=== PATIENT | male | born 1970 | race Caucasian/White ===

== ENCOUNTER 2016-09-05 09:25 | Emergency (ER) | payer OTHER ==
[~2016-09-05] VITALS: Ht 170.2 cm; Wt 90.0 kg
[~2016-09-05 09:25] MED LIST: ALPR0.25 PO; ASPI-664 PO; ATOR20TA38 PO; METO-448 PO; TICA90TA PO
[2016-09-05 09:39] VITALS: Ht 170.2 cm; Wt 90.0 kg
[2016-09-05] MEDS ORDERED: ONDANSETRON 4 MG INJ IV STA (09:56)
[2016-09-05] MEDS ORDERED: SOD CHLORIDE 0.9% 1,000 ML IV STA (09:56)
[2016-09-05] MEDS ORDERED: ACETAMINOPHEN 325 MG TAB PO ONE (10:00)
[2016-09-05] MEDS ORDERED: TICA90TA PO (10:32)
[2016-09-05] MEDS ORDERED: METO25TA4 PO (10:32)
[2016-09-05] MEDS ORDERED: ATOR20TA38 PO (10:32)
[2016-09-05 10:36] LABS: BASOPHILS % 0.1 % (0.0-2.0); EOSINOPHILS # 0.1 10^3/ul (0.0-0.5); EOSINOPHILS % 0.5 % (0.0-7.0); HEMATOCRIT 45.3 % (42.0-52.0); HEMOGLOBIN 15.5 g/dl (14.0-18.0); LYMPHOCYTES # 0.3 10^3/ul (0.8-2.9); MEAN CORPUSCULAR HEMOGLOBIN 29.8 pg (29.0-33.0); MEAN CORPUSCULAR HGB CONC 34.2 g/dl (32.0-37.0); MEAN CORPUSCULAR VOLUME 87.1 fl (82.0-101.0); MEAN PLATELET VOLUME 8.3 fl (7.4-10.4); MONOCYTE # 0.3 10^3/ul (0.3-0.9); MONOCYTES % 2.3 % (0.0-11.0); NEUTROPHIL # 14.1 10^3/ul (1.6-7.5); NEUTROPHILS % 95.1 % (39.0-77.0); PLATELET COUNT 242 10^3/UL (140-440); RED CELL DISTRIBUTION WIDTH 13.4 % (11.5-14.5); UNCORRECTED WBC 14.8 10^3/ul (4.8-10.8); WHITE BLOOD COUNT 14.8 10^3/ul (4.8-10.8)
[2016-09-05 10:48] LABS: ALBUMIN 4.3 g/dl (3.3-4.9); CHLORIDE 101 mmol/L (97-110); SODIUM 142 mmol/L (135-144)
[2016-09-05 10:50] LABS: BILIRUBIN,INDIRECT 0.7 mg/dl (0-1.1); BILIRUBIN,TOTAL 0.7 mg/dl (0.2-1.3); CREATININE 0.81 mg/dl (0.61-1.24)
[2016-09-05 10:51] LABS: ALANINE AMINOTRANSFERASE 56 IU/L (13-69); ALBUMIN/GLOBULIN RATIO 1.13; ALKALINE PHOSPHATASE 82 IU/L (42-121); ANION GAP 17 (8-16); ASPARTATE AMINO TRANSFERASE 36 IU/L (15-46); BLOOD UREA NITROGEN 14 mg/dl (7-20); CARBON DIOXIDE 28 mmol/L (21-31); GLUCOSE 111 mg/dl (70-220); TOTAL PROTEIN 8.1 g/dl (6.1-8.1)
[2016-09-05 10:54] LABS: CONDITION 1; LH ANALYZER COMMENTS 1
[2016-09-05 11:03] LABS: TROPONIN-I < 0.010 ng/ml (0.00-0.12)
[2016-09-05] MEDS ORDERED: ONDA4TAB14 PO (11:35)
[2016-09-05 11:55] VITALS: BP 103/67; PULSE 94; RESP 19; TEMP 98.8
--- NOTE | 2016-09-05 13:45 | ERD ---
ER Documentation Chief Complaint Date/Time DATE: 09/05/16 TIME: 13:43 Chief Complaint palpitations this morning, denies chest pain HPI Patient is a 46-year-old male with coronary disease who presents with vomiting. He started with vomiting at 5:30 AM. His blood pressure was normal. He had epigastric pain. He had no chest pain. He felt like his heart rate was 88-109 and he did have a temperature of 100.1 in the emergency department. He says that his epigastric pain is now gone. He has sick contacts at work. ROS All systems reviewed and are negative except as per history of present illness. Medications Home Meds Active Scripts Ondansetron (Ondansetron Odt) 4 Mg Tab.rapdis, 4 MG PO Q6H Y for NAUSEA AND/OR VOMITING, #30 TAB Prov:HANNAH TOM MD 09/05/16 Aspirin* (Aspirin* EC) 81 Mg Tabec, 81 MG PO DAILY for 30 Days Prov:CARIE DUMONT NP 08/05/15 Reported Medications Metoprolol Tartrate* (Lopressor*) 25 Mg Tablet, 25 MG PO BID, #60 TAB 09/05/16 Atorvastatin Calcium* (Atorvastatin Calcium*) 20 Mg Tablet, 20 MG PO QHS, #30 TAB 09/05/16 Ticagrelor* (Brilinta*) 90 Mg Tablet, 90 MG PO Q12, TAB 09/05/16 Alprazolam* (Xanax*) 0.25 Mg Tablet, 0.25 MG PO Q2D Y for ANXIETY, TAB 05/07/16 Discontinued Scripts Ticagrelor* (Brilinta*) 90 Mg Tablet, 90 MG PO BID for 30 Days, TAB Prov:CARIE DUMONT NP 08/05/15 Metoprolol Tartrate* (Lopressor*) 25 Mg Tab, 25 MG PO BID for 30 Days, TAB Prov:CARIE DUMONT NP 08/05/15 Atorvastatin Calcium* (Atorvastatin Calcium*) 20 Mg Tab, 20 MG PO HS for 30 Days , TAB Prov:CARIE DUMONT NP 08/05/15 Allergies Allergies: Coded Allergies: Penicillins (Verified Allergy, Unknown, 09/05/16) PMhx/Soc History of Surgery: Yes (ANGIOPLASTY WITH STENT PLACEMENT) Anesthesia Reaction: No Hx Neurological Disorder: No Hx Respiratory Disorders: No Hx Cardiac Disorders: Yes (HTN) Hx Psychiatric Problems: Yes (ANXIETY) Hx Miscellaneous Medical Probl: Yes (HYPERLIPIDEMIA) Hx Alcohol Use: No Hx Substance Use: No Hx Tobacco Use: No Smoking Status: Never smoker FmHx Family History: diabetes Physical Exam Vitals Vital Signs Date Time Temp Pulse Resp B/P Pulse Ox O2 Delivery O2 Flow Rate FiO2 09/05/16 11:55 98.8 94 19 103/67 98 Room Air 09/05/16 09:39 100.1 97 18 136/75 97 Physical Exam Const: No acute distress Head: Atraumatic Eyes: Normal Conjunctiva ENT: Normal External Ears, Nose and Mouth. Neck: Full range of motion..~ No meningismus. Resp: Clear to auscultation bilaterally Cardio: Regular rate and rhythm, no murmurs Abd: Soft, non tender, non distended. Normal bowel sounds Skin: No petechiae or rashes Back: No midline or flank tenderness Ext: No cyanosis, or edema Neur: Awake and alert Psych: Normal Mood and Affect Result Diagram: 09/05/16 1010 09/05/16 1010 Results 24 hrs Laboratory Tests Test 09/05/16 10:10 Alanine Aminotransferase (ALT/SGPT) 56IU/L Albumin 4.3g/dl Albumin/Globulin Ratio 1.13 Alkaline Phosphatase 82IU/L Anion Gap 17 Aspartate Amino Transf (AST/SGOT) 36IU/L Basophils # 0.010^3/ul Basophils % 0.1% Blood Urea Nitrogen 14mg/dl Calcium Level 9.0mg/dl Carbon Dioxide Level 28mmol/L Chloride Level 101mmol/L Creatinine 0.81mg/dl Direct Bilirubin 0.00mg/dl Eosinophils # 0.110^3/ul Eosinophils % 0.5% Globulin 3.80g/dl Glucose Level 111mg/dl Hematocrit 45.3% Hemoglobin 15.5g/dl Indirect Bilirubin 0.7mg/dl Lipase 63U/L Lymphocytes # 0.310^3/ul Lymphocytes % 2.0% Mean Corpuscular Hemoglobin 29.8pg Mean Corpuscular Hemoglobin Concent 34.2g/dl Mean Corpuscular Volume 87.1fl Mean Platelet Volume 8.3fl Monocytes # 0.310^3/ul Monocytes % 2.3% Neutrophils # 14.110^3/ul Neutrophils % 95.1% Nucleated Red Blood Cells # 0.010^3/ul Nucleated Red Blood Cells % 0.0/100WBC Platelet Count 10572^3/UL Potassium Level 4.0mmol/L Red Blood Count 5.2010^6/ul Red Cell Distribution Width 13.4% Sodium Level 142mmol/L Total Bilirubin 0.7mg/dl Total Protein 8.1g/dl Troponin I < 0.010ng/ml White Blood Count 14.810^3/ul Current Medications Medications (Trade) Dose Ordered Sig/Johnna Route PRN Reason Start Time Stop Time Status Last Admin Dose Admin Sodium Chloride (NS) 1,000 ml @ 1,000 mls/hr Q1H STAT IV 09/05/16 09:56 09/05/16 10:55 DC 09/05/16 10:23 Ondansetron HCl (Zofran Inj) 4 mg ONCE STAT IV 09/05/16 09:56 09/05/16 09:58 DC 09/05/16 10:23 Acetaminophen (Tylenol Tab) 650 mg ONCE ONCE PO 09/05/16 10:00 09/05/16 10:01 DC 09/05/16 10:23 Procedures/MDM EKG read by me: Rate/Rhythm: Regular rate and rhythm at a normal rate Intervals: Normal Impression: No evidence of ischemia or arrhythmia Patient is a 46-year-old male with coronary disease who presents with abdominal pain and vomiting. Laboratory studies were normal. EKG shows no signs of ischemia. Troponin is negative. At this point I doubt acute coronary syndrome , appendicitis, cholecystitis, pancreatitis, or bowel obstruction. I believe outpatient management is appropriate. The patient will need close follow-up with his primary doctor tomorrow for reevaluation. I will give him a prescription for Zofran. He is well-appearing upon discharge. Departure Diagnosis: Primary Impression: Abdominal pain Abdominal location: epigastric Qualified Code: R10.13 - Epigastric pain Additional Impressions: Palpitations Vomiting Vomiting type: unspecified Vomiting Intractability: non-intractable Nausea presence: with nausea Qualified Code: R11.2 - Non-intractable vomiting with nausea, unspecified vomiting type Patient Instructions: Abdominal Pain, Vomiting (6Y-Adult) Referrals: Your doctor Additional Instructions: FOLLOW UP WITH YOUR PRIMARY CARE PHYSICIAN TOMORROW.Return to this facility if you are not improving as expected. HANNAH TOM MD Sep 05, 2016 13:44
== END 2016-09-05 11:55 | disposition home or self-care (01) ==
LOC: E/R 09:25
DX: R10.13 Epigastric pain (principal); R11.2 Nausea with vomiting, unspecified; I25.10 Atherosclerotic heart disease of native coronary artery without angina pectoris; I10 Essential (primary) hypertension; Z79.82 Long term (current) use of aspirin; Z98.61 Coronary angioplasty status
CPT/HCPCS: 36415; 80053; 83690; 84484; 85025; 93005; 96374; 99284; J2405; J7030

== ENCOUNTER 2016-11-09 02:40 | Emergency (ER) | payer SELFPAY ==
[~2016-11-09] VITALS: Ht 167.6 cm; Wt 91.0 kg
[~2016-11-09 02:40] MED LIST changes: -METO-448 PO; +METO25TA4 PO; +ONDA4TAB14 PO
[2016-11-09 02:42] VITALS: Ht 167.6 cm; Wt 91.0 kg
== END 2016-11-09 03:45 | disposition left against medical advice (07) ==
LOC: E/R 02:40
DX: Z53.21 Procedure and treatment not carried out due to patient leaving prior to being seen by health care provider (principal)

== ENCOUNTER 2016-11-12 16:53 | Emergency (ER) | payer OTHER ==
[~2016-11-12] VITALS: Ht 167.6 cm; Wt 89.5 kg
[2016-11-12 17:15] VITALS: Ht 167.6 cm; Wt 89.5 kg
--- NOTE | 2016-11-12 19:29 | RADRPT ---
PROCEDURE: XR Chest. CLINICAL INDICATION: Chest pain. TECHNIQUE: Single frontal view of the chest was obtained COMPARISON: 05/07/2016. FINDINGS: Heart size may be upper limits of normal. The lungs are clear. There is no pleural effusion or pneumothorax. IMPRESSION: No acute disease. RPTAT: [facility] Physician Henok Date Time Electronically viewed and signed by Jonathan Spivey Physician on 11/12/2016 19:28 RS/
--- NOTE | 2016-11-12 20:05 | ERD ---
ER Documentation Chief Complaint Date/Time DATE: 11/12/16 TIME: 20:02 Chief Complaint cp x today, hx OK and stent placement HPI Old male who had a myocardial infarction 16 months ago and had a stent placed in the LAD by Dr. Christie. The patient states that this afternoon he was having left intercostal pinpoint pain in the anterior chest wall described as electricity like/shock feeling that lasts a split second. There is no radiation of pain no shortness of breath no diaphoresis. The patient states this is not like his myocardial infarction pain. No pain in his jaw or elbows back abdomen. Pain occurs off and on throughout the day whether he is at rest or exertion. 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 Currently he is pain-free ROS All systems reviewed and are negative except as per history of present illness. Medications Home Meds Active Scripts Ondansetron (Ondansetron Odt) 4 Mg Tab.rapdis, 4 MG PO Q6H Y for NAUSEA AND/OR VOMITING, #30 TAB Prov:HANNAH TOM MD 09/05/16 Aspirin* (Aspirin* EC) 81 Mg Tabec, 81 MG PO DAILY for 30 Days Prov:CARIE DUMONT NP 08/05/15 Reported Medications Metoprolol Tartrate* (Lopressor*) 25 Mg Tablet, 25 MG PO BID, #60 TAB 09/05/16 Atorvastatin Calcium* (Atorvastatin Calcium*) 20 Mg Tablet, 20 MG PO QHS, #30 TAB 09/05/16 Ticagrelor* (Brilinta*) 90 Mg Tablet, 90 MG PO Q12, TAB 09/05/16 Alprazolam* (Xanax*) 0.25 Mg Tablet, 0.25 MG PO Q2D Y for ANXIETY, TAB 05/07/16 Allergies Allergies: Coded Allergies: Penicillins (Verified Allergy, Unknown, 09/05/16) PMhx/Soc History of Surgery: Yes (ANGIOPLASTY WITH STENT PLACEMENT) Anesthesia Reaction: No Hx Neurological Disorder: No Hx Respiratory Disorders: No Hx Cardiac Disorders: Yes (HTN, DYSLIPIDEMIA) Hx Psychiatric Problems: Yes (ANXIETY) Hx Miscellaneous Medical Probl: Yes (BROKEN BACK 1986) Hx Alcohol Use: No Hx Substance Use: No Hx Tobacco Use: No Smoking Status: Former smoker FmHx Family History: No coronary disease Physical Exam Vitals Vital Signs Date Time Temp Pulse Resp B/P Pulse Ox O2 Delivery O2 Flow Rate FiO2 11/12/16 18:30 99.3 70 20 118/96 100 Room Air 11/12/16 17:15 99.3 77 20 132/95 96 Physical Exam Const: Well-developed, well-nourished Head: Atraumatic, normocephalic Eyes: Normal Conjunctiva, PERRLA, EOMI, normal sclera, no nystagmus ENT: Normal External Ears, Nose and Mouth, moist mucus membranes. Neck: Full range of motion. No meningismus, no lymphadenopathy. Resp: Clear to auscultation bilaterally, no wheezing, rhonchi, rales Cardio: Regular rate and rhythm, no murmurs, S1 S2 present Abd: Soft, non tender x 4, non distended. Normal bowel sounds, no guarding or rebound, no pulsitile abdominal masses or bruits Skin: No petechiae or rashes, no ecchymosis , no maculopapular rash Back: No midline or flank tenderness Ext: No cyanosis, or edema, FROM x 4, normal inspection, neurovascularly intact x 4 Neur: Awake and alert, STR 5/5 x 4, sensation intact x 4, no focal findings, cerebellum intact Psych: Normal Mood and Affect Results 24 hrs Laboratory Tests Test 11/12/16 18:50 Troponin I < 0.012ng/ml Procedures/MDM PROCEDURE: XR Chest. CLINICAL INDICATION: Chest pain. TECHNIQUE: Single frontal view of the chest was obtained COMPARISON: 05/07/2016. FINDINGS: Heart size may be upper limits of normal. The lungs are clear. There is no pleural effusion or pneumothorax. IMPRESSION: No acute disease. RPTAT: [facility] Physician Henok Date Time Electronically viewed and signed by Physician Henok on 11/12/2016 19:28 RS/ CC: JONATHAN POWELL DO EKG: Rate/Rhythm: Normal Sinus Rhythm,NL intervals QRS, ST, QT: NORMAL ND, QRS, QT] Impression: NORMAL EKG Patient's pain does not sound cardiac in etiology. Likely some type of musculoskeletal in origin or some type of nerve in the intercostal region is being irritated. He will follow his symptoms and follow with cardiology or here if needed Departure Diagnosis: Primary Impression: Chest pain Chest pain type: intercostal pain Qualified Code: R07.82 - Intercostal pain Condition: Stable Patient Instructions: Chest Pain, Uncertain Cause Referrals: MICHAEL CHRISTIE APOSTOLOS A. DO Nov 12, 2016 20:05
[2016-11-12 20:07] VITALS: BP 118/80; PULSE 65; RESP 20; TEMP 99.3
== END 2016-11-12 20:07 | disposition home or self-care (01) ==
LOC: E/R 16:53
DX: R07.82 Intercostal pain (principal); I10 Essential (primary) hypertension; Z95.5 Presence of coronary angioplasty implant and graft; Z79.82 Long term (current) use of aspirin; Z87.891 Personal history of nicotine dependence
CPT/HCPCS: 36415; 71010; 84484; 93005

== ENCOUNTER 2017-02-25 14:59 | Emergency (ER) | payer OTHER ==
[~2017-02-25] VITALS: Wt 90.5 kg
--- NOTE | 2017-02-25 15:39 | ERD ---
ER Documentation Chief Complaint Date/Time DATE: 02/25/17 TIME: 15:38 Chief Complaint RIGHT THIGH SORENESS, NO INJURY HPI This a 46-year-old male well-known to me history of [place] and is on blood thinners. The patient had a right lateral thigh quarter size shape area of swelling yesterday and woke this morning with no more swelling but now is a red aleksey consistent with a bruise. The patient's concern he has a DVT he has no other pain in the leg no swelling no shortness of breath ROS All systems reviewed and are negative except as per history of present illness. Medications Home Meds Active Scripts Ondansetron (Ondansetron Odt) 4 Mg Tab.rapdis, 4 MG PO Q6H Y for NAUSEA AND/OR VOMITING, #30 TAB Prov:HANNAH TOM MD 09/05/16 Aspirin* (Aspirin* EC) 81 Mg Tabec, 81 MG PO DAILY for 30 Days Prov:CARIE DUMONT NP 08/05/15 Reported Medications Metoprolol Tartrate* (Lopressor*) 25 Mg Tablet, 25 MG PO BID, #60 TAB 09/05/16 Atorvastatin Calcium* (Atorvastatin Calcium*) 20 Mg Tablet, 20 MG PO QHS, #30 TAB 09/05/16 Ticagrelor* (Brilinta*) 90 Mg Tablet, 90 MG PO Q12, TAB 09/05/16 Alprazolam* (Xanax*) 0.25 Mg Tablet, 0.25 MG PO Q2D Y for ANXIETY, TAB 05/07/16 Allergies Allergies: Coded Allergies: Penicillins (Verified Allergy, Unknown, 09/05/16) PMhx/Soc History of Surgery: Yes (ANGIOPLASTY WITH STENT PLACEMENT) Anesthesia Reaction: No Hx Neurological Disorder: No Hx Respiratory Disorders: No Hx Cardiac Disorders: Yes (HTN, DYSLIPIDEMIA) Hx Psychiatric Problems: Yes (ANXIETY) Hx Miscellaneous Medical Probl: Yes (BROKEN BACK 1986) Hx Alcohol Use: No Hx Substance Use: No Hx Tobacco Use: No FmHx Family History: coronary disease Physical Exam Vitals Vital Signs Date Time Temp Pulse Resp B/P Pulse Ox O2 Delivery O2 Flow Rate FiO2 02/25/17 15:01 98.6 85 17 130/78 98 Physical Exam Const: Well-developed, well-nourished Head: Atraumatic, normocephalic Eyes: Normal Conjunctiva, PERRLA, EOMI, normal sclera, no nystagmus ENT: Normal External Ears, Nose and Mouth, moist mucus membranes. Neck: Full range of motion. No meningismus, no lymphadenopathy. Resp: Clear to auscultation bilaterally, no wheezing, rhonchi, rales Cardio: Regular rate and rhythm, no murmurs, S1 S2 present Abd: Soft, non tender x 4, non distended. Normal bowel sounds, no guarding or rebound, no pulsitile abdominal masses or bruits Skin: No petechiae or rashes, no ecchymosis , no maculopapular rash Back: No midline or flank tenderness Ext: No cyanosis, or edema, FROM x 4, normal inspection, neurovascularly intact x 4, small quarter size area of bruise in the right lateral thigh no swelling no signs of DVT Neur: Awake and alert, STR 5/5 x 4, sensation intact x 4, no focal findings, cerebellum intact Psych: Normal Mood and Affect Departure Diagnosis: Primary Impression: Hematoma Condition: Stable Patient Instructions: JONATHAN Canela DO Feb 25, 2017 15:39
== END 2017-02-25 16:12 | disposition home or self-care (01) ==
LOC: FTE 14:59
DX: S70.11XA Contusion of right thigh, initial encounter (principal); I10 Essential (primary) hypertension; X58.XXXA Exposure to other specified factors, initial encounter; Y92.9 Unspecified place or not applicable; Z79.82 Long term (current) use of aspirin
CPT/HCPCS: 99282

== ENCOUNTER 2017-03-06 00:57 | Emergency (ER) | payer SELFPAY ==
[~2017-03-06] VITALS: Ht 172.7 cm; Wt 91.0 kg
[2017-03-06 01:01] VITALS: Ht 172.7 cm; Wt 91.0 kg
== END 2017-03-06 02:20 | disposition left against medical advice (07) ==
LOC: E/R 00:57
DX: Z53.21 Procedure and treatment not carried out due to patient leaving prior to being seen by health care provider (principal)

== ENCOUNTER 2017-12-25 12:58 | Emergency (ER) | END 2017-12-25 15:56 | disposition home or self-care (01) ==